=== PATIENT | female | born 1950 | race Native Hawaiian/Other Pacific Islander ===

== ENCOUNTER 2017-01-16 07:49 | Day surgery (SDC) | payer OTHER ==
[2017-01-09 09:55] VITALS: BMI 25.0
[~2017-01-16 07:49] MED LIST: Bupivacaine HCl 0.25% PF (10 ml) Inj ONE; Dexamethasone 4 mg/1 ml ONE; ceFAZolin IV 1 gm in Dextrose 1 GM/50 ML BAG IVPB ONE
[2017-01-16] MEDS: Lidocaine 2% Inj (20ml) ONE ×2 (08:28→08:32)
[2017-01-16] MEDS ORDERED: Propofol 10 mg/ml Inj (20 ML) ONE ×2 (08:29→09:17)
[2017-01-16] MEDS: Bupivacaine HCl 0.5% PF (10 ml) Inj ONE ×2 (08:29→08:32)
[2017-01-16] MEDS ORDERED: Midazolam 2 MG/2 ML VIAL ONE (08:30)
[2017-01-16] MEDS ORDERED: Lidocaine Hydrochloride 5 ML INJ ONE (08:31)
[2017-01-16] MEDS ORDERED: Lactated Ringer's 1,000 ML IV ONE (10:00)
--- NOTE | 2017-01-16 10:01 | PCM.SURG1 ---
Surgeon's Initial Post Op Note - Surgeon's Notes Surgeon: Dr. Gonsalez Licensing Worker: Sandy Wilcox PGY-2 Type of Anesthesia: IV Sedation, Local Pre-Operative Diagnosis: Right foot hallux valgus deformity Operative Findings: See dictation. M: 2x synthes 2.0 14 mm cortical screws. 2- 0 vicry, 3-0 vicryl, 4-0 vicry, 4-0 nylon. I: 10 ml 0.25% marcaine plain, 4 mg/ ml dexamethasone Post-Operative Diagnosis: same Operation Performed: right foot bunionectomy Specimen/Specimens Removed: bone right foot Estimated Blood Loss: EBL {In ML}: 0 Blood Products Given: N/A Drains Used: No Drains Post-Op Condition: Good Date of Surgery/Procedure: 01/16/17 Time of Surgery/Procedure: 08:30
[2017-01-16] MEDS ORDERED: Oxycodone/Acetaminophen 5/325 mg Tab PO PRN ×2 (10:05)
[2017-01-16 13:00] VITALS: BP 112/63; PULSE 88; RESP 20; TEMP 98; O2SAT 99
--- NOTE | 2017-01-16 15:22 | RAD ---
Right foot two views History: Status post right foot bunionectomy. Comparison: None available. Findings: Hallux valgus repair at the 1st metatarsal head with 2 screws traversing the 1st metatarsal shaft. Postsurgical changes including subcutaneous air noted. Plantar and dorsal calcaneal spurring. Impression: Postsurgical changes.
--- NOTE | 2017-01-17 11:41 | OP ---
PROCEDURE DATE: 01/16/2017 SURGEON: Dr. Carlos Manuel Gonsalez [employer] BOILER: Sandy Wilcox, PGY-2 PREOPERATIVE DIAGNOSIS: Right foot hallux valgus deformity. POSTOPERATIVE DIAGNOSIS: Right foot hallux valgus deformity. NAME OF PROCEDURE: Right foot Glenn bunionectomy. ANESTHESIA: IV sedation with local anesthesia. INDICATIONS: The patient is a 66-year-old female with the above-mentioned diagnosis. The patient has exhausted conservative treatment at this time and is now requesting surgical intervention. The patient signed the consent after careful explanation of risks, benefits, complications and alternatives for surgical procedure. No guarantees were given nor implied. Ancef 2 g IV were given to the patient prior to the procedure. N.p.o. status was confirmed prior to taking the patient to the operating room. PREPARATION: The patient was brought into the operating room and placed on the operating room table in supine position. A well-padded pneumatic ankle tourniquet was placed to the patient's right ankle in a supramalleolar position. After induction of IV sedation, a total of 20 mL of a 1:1 mixture of 0.5% Marcaine and 1% lidocaine plain were injected in a local block fashion to the right foot. The right foot was then prepped and draped in the usual sterile manner and the procedure began. DESCRIPTION OF PROCEDURE: Attention was directed to the dorsal aspect of the first metatarsal head of the right foot where an approximately 6 cm linear longitudinal incision was made medial and parallel to the tendon of the extensor hallucis longus and involving the contour of the deformity. The incision was deepened through the subcutaneous tissue using sharp and blunt dissection. Care was taken to identify and retract all vital neurovascular structures. All bleeders were cauterized and ligated as necessary. Attention was then directed to the first interspace via the original incision where the lateral capsule was released. Dissection was continued deep using blunt dissection down to the level of the fibular sesamoid, which was freed of its soft tissue attachments proximally, laterally, and distally. At this time, the lateral contracture present on the hallux was noted to be reduced and the sesamoid apparatus was noted to float in a more corrected medial position. At this time, an inverted L-type capsulotomy was performed over the dorsal aspect of the first metatarsophalangeal joint. The periosteal and capsular structures were then carefully dissected free of their osseous attachments and reflected medially and laterally, thus exposing the head of the first metatarsal into the operative site. Next, utilizing an oscillating bone saw, the dorsal and medial prominences were resected and passed from the operative field. All rough edges were then smoothed down. At this time, the hip was externally rotated and the knee was flexed to bring the medial surface of the foot superior to allow for better visualization of the medial aspect of the first metatarsal head for the osteotomy cuts. Attention was then redirected to the medial aspect of the first metatarsal head, where a through and through V-type osteotomy was created in the metaphyseal region of the bone utilizing an oscillating bone saw. The apex of the osteotomy pointed distally with the arms pointing proximal plantar and proximal dorsally. The dorsal arm was made longer to accommodate internal fixation. Upon completion of the osteotomy, the capsular fragment was retracted and shifted laterally into a more corrected position and impacted upon the first metatarsal shaft. At this time, two 0.045 inch K-wires were driven from dorsal to plantar across the osteotomy site to serve as temporary fixation. Following sequential removal of the K-wires and following standard AO principles and techniques, two 2.0, 14 mm cortical screws were inserted across the osteotomy site with excellent compression noted. The remaining medial bone shelf was then resected utilizing the bone saw and passed from the operative field. Correction of the deformity was assessed at this time and noted to be excellent. The wound was flushed with copious amounts of normal sterile saline. A capsulorrhaphy was performed medially. The periosteal and capsular structures were reapproximated and coapted using 2-0 and 3-0 Vicryl. Redundant capsular tissues were resected as necessary. The subcuticular tissues were reapproximated and coapted using 4-0 Vicryl. Skin was reapproximated and coapted using 4-0 nylon. POSTOPERATIVE CONDITION: The patient tolerated the anesthesia and procedure well and was escorted to recovery room with vital signs stable and neurovascular status intact to the right foot. The patient will follow up with Dr. Gonsalez in his office next week. Sandy KILGOREM Carlos Manuel Sunshine DEVINE cc: [id number] TT: 01/17/2017 11:41:20 en MTDD
== END 2017-01-16 12:50 | disposition home or self-care (01) ==
LOC: C.SDS 07:49
PROVIDERS: ATTEND Podiatrist
DX: M20.11 Hallux valgus (acquired), right foot (principal); M21.611 Bunion of right foot
CPT/HCPCS: 28296; 73620; 88304; 97116; 97161; C1713; G8978; G8979; G8980; J0690; J1100; J2250; J2405; J2704; J3010; J7120

== ENCOUNTER 2017-05-04 06:46 | Day surgery (SDC) | payer OTHER ==
[2017-05-04 07:08] VITALS: BMI 24.8
[2017-05-04] MEDS ORDERED: Propofol 10 mg/ml Inj (20 ML) ONE ×2 (08:02→08:03)
[2017-05-04] MEDS: Lactated Ringer's 1,000 ML IV ONE (08:16)
[2017-05-04] MEDS ORDERED: Lactated Ringer's 500 ML IV SCH (08:45)
[2017-05-04 08:57] VITALS: O2SAT 100
[2017-05-04 10:14] VITALS: BP 105/67; PULSE 60; RESP 16; TEMP 97
== END 2017-05-04 10:00 | disposition home or self-care (01) ==
LOC: C.ENDO 06:46
PROVIDERS: ATTEND Internal Medicine Gastroenterology
DX: K25.9 Gastric ulcer, unspecified as acute or chronic, without hemorrhage or perforation (principal); K29.70 Gastritis, unspecified, without bleeding; K44.9 Diaphragmatic hernia without obstruction or gangrene; K57.90 Diverticulosis of intestine, part unspecified, without perforation or abscess without bleeding; K64.8 Other hemorrhoids; K20.9 Esophagitis, unspecified

== ENCOUNTER 2017-07-05 07:01 | Day surgery (SDC) | payer OTHER ==
[2017-07-05 07:28] VITALS: BMI 25.0
[2017-07-05] MEDS ORDERED: Propofol 10 mg/ml Inj (20 ML) ONE (09:20)
[2017-07-05] MEDS ORDERED: Midazolam 2 MG/2 ML VIAL ONE (09:20)
[2017-07-05] MEDS ORDERED: Lidocaine Hydrochloride 5 ML INJ ONE (09:21)
[2017-07-05] MEDS ORDERED: Lactated Ringer's 500 ML IV ONE ×2 (09:21)
--- NOTE | 2017-07-05 09:22 | CP.SDSHP ---
Same Day Surgery H & P - History Proposed Procedure: EGD Pre-Op Diagnosis: gastric ulcer - Allergies Allergies: Allergies SEAFOOD Allergy (Mild, Uncoded 01/09/17 09:55) RASH - Physical Exam General Appearance: NAD Vital Signs: Vital Signs 07/05/17 07:29 Temperature 96.8 F L Pulse Rate 74 Respiratory 19 Rate Blood Pressure 122/79 O2 Sat by Pulse 98 Oximetry Mental Status: Alert & Oriented x3 Neuro: WNL Heart: WNL Lungs: WNL GI: WNL - {Optional Preform as Required} Abdomen: WNL - Impression Pt. Evaluated Today:Candidate for Anesthesia & Procedure: Yes - Date & Time Date: 07/05/17 Time: 09:22 Short Stay Discharge - Short Stay Discharge Admitting Diagnosis/Reason for Visit: GASTRIC ULCER, UNSP ACUTE OR CHRONIC, W /O HEMOR Disposition: HOME/ ROUTINE
[2017-07-05 09:34] VITALS: O2SAT 100
[2017-07-05] MEDS ORDERED: Lactated Ringer's 500 ML IV SCH (09:45)
[2017-07-05 09:48] VITALS: TEMP 97.6
[2017-07-05 10:27] VITALS: BP 120/63; PULSE 62; RESP 14
== END 2017-07-05 11:41 | disposition home or self-care (01) ==
LOC: C.ENDO 07:01
PROVIDERS: ATTEND Internal Medicine Gastroenterology
DX: K25.9 Gastric ulcer, unspecified as acute or chronic, without hemorrhage or perforation (principal); K44.9 Diaphragmatic hernia without obstruction or gangrene
CPT/HCPCS: 43235; J2250; J2704; J7120